=== PATIENT | male | born 1995 | race African-American/Black ===

== ENCOUNTER 2016-07-27 21:46 | Emergency (ER) | payer SELFPAY ==
[~2016-07-27] VITALS: Ht 188 cm; Wt 78.1 kg
[~2016-07-27 21:46] MED LIST: NORC7.5T PO
[2016-07-27 21:51] VITALS: BP 148/82; PULSE 104; RESP 18; TEMP 98.8; O2SAT 100
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
[2016-07-27] MEDS ORDERED: TETANUS/DIPHTHERIA TOXOID ADULT 0.5 ML VIAL IM ONE (22:15)
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
[2016-07-28 00:52] VITALS: BP 134/61
== END 2016-07-28 00:53 | disposition home or self-care (01) ==
LOC: PHEFT 21:46
DX: S06.0X9A Concussion with loss of consciousness of unspecified duration, initial encounter (principal); S00.83XA Contusion of other part of head, initial encounter; Y04.0XXA Assault by unarmed brawl or fight, initial encounter; Z23 Encounter for immunization
CPT/HCPCS: 70450; 70486; 90471; 90714

== ENCOUNTER 2016-08-06 21:16 | Emergency (ER) | payer SELFPAY ==
[~2016-08-06] VITALS: Ht 188 cm; Wt 75.5 kg
[2016-08-06 21:23] VITALS: BP 146/98; PULSE 90; RESP 18; TEMP 98; O2SAT 100
[2016-08-06] MEDS ORDERED: CLIN1CAP5 PO (22:08)
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
[2016-08-06] MEDS ORDERED: CLINDAMYCIN 150 MG CAP PO ONE (22:15)
== END 2016-08-06 22:21 | disposition home or self-care (01) ==
LOC: PHED 21:16
DX: S01.511A Laceration without foreign body of lip, initial encounter (principal); S00.531A Contusion of lip, initial encounter; Z72.0 Tobacco use; Y04.0XXA Assault by unarmed brawl or fight, initial encounter; Y93.89 Activity, other specified; Y99.9 Unspecified external cause status
CPT/HCPCS: 99283

== ENCOUNTER 2016-08-21 23:10 | Inpatient (IN) | payer SELFPAY ==
[~2016-08-21] VITALS: Ht 190.5 cm; Wt 79.5 kg
[~2016-08-21 23:10] MED LIST changes: +CLIN1CAP5 PO; -NORC7.5T PO
[2016-08-21 23:24] VITALS: BP 134/72; PULSE 85; RESP 18; TEMP 97.8; O2SAT 100
[2016-08-21] MEDS ORDERED: TETANUS/DIPHTHERIA TOXOID ADULT 0.5 ML VIAL IM ONE (23:30)
[2016-08-21] MEDS ORDERED: LIDOCAINE 1%/EPINEPHrine 1:100,000 SOLN 50 ML VIAL INFIL ONE (23:45)
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
[2016-08-22] MEDS ORDERED: SODIUM CHLOR 0.9% 1000 ML INJ 1,000 ML IV ONE (01:15)
[2016-08-22] MEDS ORDERED: SODIUM CHLORIDE 0.9% FLUSH 10 ML FLUSH IV FLUSH PRN (01:15)
[2016-08-22] MEDS ORDERED: MORPHINE SULFATE 4 MG/ML INJ IV PUSH PRN ×3 (01:15→09:15)
[2016-08-22] MEDS ORDERED: NALOXONE HCL 0.4 MG/ML AMP IV PRN (01:15)
[2016-08-22] MEDS ORDERED: ceFAZolin 2 GM PREMIX 50 ML IV ONE (01:15)
[2016-08-22] MEDS ORDERED: ONDANSETRON HCL 4 MG/2 ML VIAL IV PUSH ONE (01:15)
[2016-08-22] MEDS ORDERED: MORPHINE SULFATE 4 MG/ML INJ IV PUSH ONE (01:15)
--- NOTE | 2016-08-22 01:32 | PD ---
HPI Chief Complaint: Laceration/Skin Injury Time Seen by Provider: 01:18 Travel History International Travel<30 days: No Contact w/Intl Traveler<30days: No Traveled to known affect area: No History of Present Illness HPI 20-year-old [id number] black male presents to emergency department by EMS for evaluation of right hand laceration. The patient admits to drinking alcohol. He states that he was running and fell into a window. He sustained deep lacerations to his right hand and arm. Patient denies any numbness or tingling. He denies any weakness. He denies any injury to his head, neck or back. The patient is loud, belligerent, and using profanity towards the EMS staff, and the ER staff. PFSH Past Medical History Asthma: Yes (ASTHMA CHILD BUT HAS OUTGROWN) Diminished Hearing: No Musculoskeletal: Yes (L WRIST FX, L ELBOW FX) Immunizations Current: No Tetanus Vaccination: Unknown Past Surgical History Surgical History: No Previous Surgery Social History Alcohol Use: Yes Tobacco Use: Yes Substance Use: Yes (xanax and marijuana) Allergies-Medications (Allergen,Severity, Reaction): Coded Allergies: No Known Allergies (Verified , 08/21/16) Reported Meds & Prescriptions Reported Meds & Active Scripts Active No Active Prescriptions or Reported Medications Review of Systems ROS Limitations: Intoxication Physical Exam Narrative GENERAL: Well-developed, well-nourished in mild distress secondary to pain. Nontoxic appearing. HEAD: Normocephalic, atraumatic. EYES: Pupils equal round and reactive. Extraocular motions intact. No scleral icterus. No injection or drainage. ENT: Nose clear. Throat without erythema, tonsillar hypertrophy or exudate. Uvula midline. Airway patent. NECK: Trachea midline. Supple, nontender, moves head freely. No central bony tenderness or spasm. CARDIOVASCULAR: Regular rate and rhythm without murmurs, gallops, or rubs. RESPIRATORY: Clear to auscultation. Breath sounds equal bilaterally. No wheezes , rales, or rhonchi. GASTROINTESTINAL: Abdomen soft, non-tender, nondistended. No hepato-splenomegaly , or palpable masses. No guarding. EXTREMITIES: No clubbing, cyanosis, or edema. Patient has deep lacerations to the right forearm and right ulnar wrist and palm. The patient is able to extend his fingers, splayed his fingers, close his fingers, extend his wrist, and flex his wrist. The patient states that he has intact sensation which feels normal in all digits. The laceration to the ulnar aspect of the wrist and palm appears deep into the muscle belly of the hypothenar eminence. There is a laceration involving the tendons of the ulnar wrist. These appear to be partial injuries approximately 30-50%. BACK: Nontender without deformity. No flank tenderness. NEUROLOGICAL: Awake, alert and oriented x 3 .Cranial nerves grossly intact. Motor and sensory grossly within normal limits. Normal speech. Data Data Last Documented VS Vital Signs Date Time Temp Pulse Resp B/P Pulse Ox O2 Delivery O2 Flow Rate FiO2 08/21/16 23:24 97.8 85 18 134/72 100 Orders Tetanus/Diphtheria Tox Adult (Tetanus/Di (08/21/16 23:30) Cefazolin Inj (Ancef Inj) (08/21/16 23:30) Forearm (2vws) (08/21/16 23:26) Hand, Limited (2vws) (08/21/16 23:32) Lidocai-Epi 1%-1:100,000 Inj (Xylocaine- (08/21/16 23:45) Admit To Inpatient (08/22/16 ) Vital Signs (Adult) Q4H (08/22/16 01:05) Activity Oob Ad Serena (08/22/16 01:05) Diet Npo (08/22/16 Breakfast) Sodium Chlor 0.9% 1000 Ml Inj (Ns 1000 M (08/22/16 01:05) Sodium Chloride 0.9% Flush (Ns Flush) (08/22/16 01:15) Sodium Chloride 0.9% Flush (Ns Flush) (08/22/16 09:00) Basic Metabolic Panel (Bmp) (08/23/16 06:00) Complete Blood Count With Diff (08/23/16 06:00) Case Management Consult (08/22/16 01:05) Scd Bilateral/Knee High JOHN.BID (08/22/16 01:05) Naloxone Inj (Narcan Inj) (08/22/16 01:15) Inpatient Certification (08/22/16 ) Morphine Inj (Morphine Inj) (08/22/16 01:15) Cefazolin 2 Gm Premix (Ancef 2 Gm Premix (08/22/16 01:15) Ondansetron Inj (Zofran Inj) (08/22/16 01:15) Morphine Inj (Morphine Inj) (08/22/16 01:15) Splint Or Brace Apply/Monitor (08/22/16 01:11) Complete Blood Count With Diff (08/22/16 01:15) Basic Metabolic Panel (Bmp) (08/22/16 01:15) Iv Access Insert/Monitor (08/22/16 01:15) Ns (Bolus) Inj (08/22/16 01:15) MDM Medical Decision Making Medical Screen Exam Complete: Yes Emergency Medical Condition: Yes Medical Record Reviewed: Yes Interpretation(s) Last 24 hours Impressions Hand X-Ray 08/21/162 Signed Impressions: Service Date/Time: Sunday, August 21, 2016 23:40 - CONCLUSION: Large soft tissue defect at the wrist. Adan Faye MD Radius/Ulna X-Ray 08/21/16 [id number] Signed Impressions: Service Date/Time: Sunday, August 21, 2016 23:35 - CONCLUSION: Soft tissue injury without definite retained foreign body. Adan Faye MD Differential Diagnosis MDM: High Differential diagnoses: Fracture, sprain, strain, dislocation, contusion, neurovascular injury Narrative Course The case has been discussed with Dr. Blackburn who has agreed to be a consult on the case. He has requested that his wounds be closed and have the [facility] service admit the patient. He plans on taking the patient to the OR tomorrow. The case has been discussed with who has agreed to admit the patient. IV access is obtained. Patient's given 1 L bolus of saline, 4 mg of Zofran IV, 4 mg of morphine IV, 2 g of Ancef IV, tetanus immunization. His wounds are closed with sutures and girma. He is placed in a splint. The patient is aware that need further exploration of his wounds through the OR tomorrow. Patient's family members are at bedside. Procedures Procedure Narrative LACERATION LOCATION: Right mid forearm LENGTH: 8 cm NUMBER OF STITCHES/GIRMA:21 REPAIR: The area of the laceration was prepped with Betadine and sterilely draped. The laceration was infiltrated with 1% lidocaine with epinephrine. The wound was copiously irrigated and explored without evidence of foreign body , tendon injury or neurovascular injury. There is laceration through the fascia of the muscles of the forearm. This goes down just into the muscle belly of the dorsal forearm. The fascia is closed using 3-0 Vicryl. The subcutaneous tissues are approximated using 3-0 Vicryl. The skin was closed using girma. This was a 3 layer repair. A sterile dressing was applied. The patient was advised to keep the dressing clean and dry. Patient tolerated the procedure well. LACERATION LOCATION: Right volar forearm LENGTH: 3 cm NUMBER OF STITCHES/GIRMA: 6 REPAIR: The area of the laceration was prepped with Betadine and sterilely draped. The laceration was infiltrated with 1% lidocaine with epinephrine. The wound was copiously irrigated and explored without evidence of foreign body , tendon injury or neurovascular injury. The wound was closed using girma. This was a simple single layer repair. A sterile dressing was applied. The patient was advised to keep the dressing clean and dry. Patient tolerated the procedure well. LACERATION LOCATION: Right volar forearm LENGTH: 3 cm NUMBER OF STITCHES/GIRMA: 6 REPAIR: The area of the laceration was prepped with Betadine and sterilely draped. The laceration was infiltrated with 1% lidocaine with epinephrine. The wound was copiously irrigated and explored without evidence of foreign body , tendon injury or neurovascular injury. The wound was closed using girma. This was a simple single layer repair. A sterile dressing was applied. The patient was advised to keep the dressing clean and dry. Patient tolerated the procedure well. LACERATION LOCATION: Right volar forearm LENGTH: 3 cm NUMBER OF STITCHES/GIRMA: 6 REPAIR: The area of the laceration was prepped with Betadine and sterilely draped. The laceration was infiltrated with 1% lidocaine with epinephrine. The wound was copiously irrigated and explored without evidence of foreign body , tendon injury or neurovascular injury. The wound was closed using girma. This was a simple single layer repair. A sterile dressing was applied. The patient was advised to keep the dressing clean and dry. Patient tolerated the procedure well. LACERATION LOCATION: Palm LENGTH: 3 cm NUMBER OF STITCHES/GIRMA: 6 REPAIR: The area of the laceration was prepped with Betadine and sterilely draped. The laceration was infiltrated with 1% lidocaine with epinephrine. The wound was copiously irrigated and explored without evidence of foreign body , tendon injury or neurovascular injury. The wound was closed using girma. This was a simple single layer repair. A sterile dressing was applied. The patient was advised to keep the dressing clean and dry. Patient tolerated the procedure well. LACERATION LOCATION: Ulnar wrist and hypothenar eminence LENGTH: 11 cm NUMBER OF STITCHES/GIRMA: 20 REPAIR: The area of the laceration was prepped with Betadine and sterilely draped. The laceration was infiltrated with 1% lidocaine with epinephrine. The wound was copiously irrigated and explored without evidence of foreign body, or neurovascular injury. There is laceration of the muscle of the hypothenar eminence The patient has lacerations to the ulnar tendons of the wrist. There is approximately 30-40% laceration of the tendon appears intact otherwise. The wound was closed using 5-0 proline. This was a single layer repair. A sterile dressing was applied. The patient was advised to keep the dressing clean and dry. Patient tolerated the procedure well. The patient is placed in a splint in neutral position. Diagnosis Primary Impression: complex laceration right hand and wrist Additional Impression: Laceration of right forearm Qualified Code: S51.811A - Laceration of right forearm, initial encounter Admitting Information Admitting Physician Requests: Admit Scripts No Active Prescriptions or Reported Meds Condition: Yovani Rucker Aug 22, 2016 01:32
[2016-08-22] MEDS: SODIUM CHLOR 0.9% 1000 ML INJ 1,000 ML IV SCH ×2 (01:39→11:05)
[2016-08-22 01:43] LABS: AUTOMATED NEUTROPHIL # 9.3 TH/MM3 (1.8-7.7); BASOPHIL % 0.2 % (0.0-2.0); EOSINOPHIL # 0.1 TH/MM3 (0-0.4); EOSINOPHIL % 0.6 % (0.0-4.0); HEMATOCRIT 38.2 % (39.0-51.0); HEMO FLAGS DIFF FINAL; LYMPH % 14.4 % (9.0-44.0); LYMPHOCYTE # 1.7 TH/MM3 (1.0-4.8); MEAN CELL VOLUME 86.6 FL (80.0-100.0); MEAN CORPUSCULAR HEMOGLOBIN 28.6 PG (27.0-34.0); MEAN CORPUSCULAR HGB CONC 33.1 % (32.0-36.0); MONO % 7.3 % (0.0-8.0); NEUT % 77.5 % (16.0-70.0); PLATELET COUNT 243 TH/MM3 (150-450); RED BLOOD COUNT 4.41 MIL/MM3 (4.50-5.90); RED CELL DISTRIBUTION WIDTH 14.2 % (11.6-17.2); WHITE BLOOD COUNT 12.1 TH/MM3 (4.0-11.0)
[2016-08-22 02:09] LABS: BICARBONATE 28.4 MEQ/L (21.0-32.0); POTASSIUM 3.6 MEQ/L (3.5-5.1)
[2016-08-22 04:37] VITALS: BP 126/80; PULSE 76; RESP 18
[2016-08-22 07:55] VITALS: BP 137/87; PULSE 58; RESP 16; TEMP 97.7; O2SAT 99
[2016-08-22] MEDS ORDERED: SODIUM CHLORIDE 0.9% FLUSH 10 ML FLUSH IV FLUSH SCH (09:00)
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
[2016-08-22] MEDS ORDERED: LIDOCAINE HCL 2% 50 ML VIAL ONE (11:51)
[2016-08-22] MEDS ORDERED: BUPIVACAINE HCL PF 0.5% 30 ML VIAL ONE (11:51)
[2016-08-22] MEDS ORDERED: BACITRACIN TOP OINT 15 GM TUBE ONE (11:51)
[2016-08-22 13:00] VITALS: RESP 16
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
[2016-08-22] MEDS ORDERED: PERC5TAB12 PO (13:39)
[2016-08-22] MEDS ORDERED: CEPH-460 PO (13:39)
--- NOTE | 2016-08-22 13:41 | HHI.DCPOC ---
Discharge Care Plan Diagnosis: (1) Laceration of right forearm (2) Leukocytosis (3) Hyperglycemia Goals to Promote Your Health * To prevent worsening of your condition and complications * To maintain your health at the optimal level Directions to Meet Your Goals Take your medications as prescribed Follow your dietary instruction Follow activity as directed Keep your appointments as scheduled Take your immunizations and boosters as scheduled If your symptoms worsen call your PCP, if no PCP go to Urgent Care Center or Emergency Room Smoking is Dangerous to Your Health. Avoid second hand smoke Call the 24-hour hour crisis hotline for domestic abuse at Faisal Alfaro MD Aug 22, 2016 13:41
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
[2016-08-22 17:21] LABS: HEMOGLOBIN A1b 0.7 %; HEMOGLOBIN F 0.9 %
[2016-08-22 17:22] LABS: HEMOGLOBIN Ao 86.3 %; HEMOGLOBIN LA1C 1.9 %; HEMOGLOBIN P3 3.4 %
== END 2016-08-22 14:50 | disposition home or self-care (01) | DRG 605 ==
LOC: NEPB 23:10 → NEDA 08-22 01:34 → NEDH 08-22 06:23
PROVIDERS: ADMIT Hospitalist; ATTEND Hospitalist
PROC: 0HQDXZZ Repair Right Lower Arm Skin, External Approach (ICD-10-PCS; principal; 2016-08-22)
PROC: 0HQFXZZ Repair Right Hand Skin, External Approach (ICD-10-PCS; 2016-08-22)
PROC: 0HQDXZZ Repair Right Lower Arm Skin, External Approach (ICD-10-PCS; 2016-08-22)
DX: S61.511A Laceration without foreign body of right wrist, initial encounter (principal); S66.821A Laceration of other specified muscles, fascia and tendons at wrist and hand level, right hand, initial encounter; F17.210 Nicotine dependence, cigarettes, uncomplicated; D72.829 Elevated white blood cell count, unspecified; F10.10 Alcohol abuse, uncomplicated; R73.9 Hyperglycemia, unspecified; S51.811A Laceration without foreign body of right forearm, initial encounter; W18.02XA Striking against glass with subsequent fall, initial encounter; Y92.9 Unspecified place or not applicable; Y99.9 Unspecified external cause status; S61.411A Laceration without foreign body of right hand, initial encounter; Y93.01 Activity, walking, marching and hiking
CPT/HCPCS: 12006; 13121; 13122; 73090; 73120; 80048; 83036; 85025; 90714; J0690; J2270; J2405; J7030

== ENCOUNTER 2017-03-09 01:49 | Emergency (ER) | payer SELFPAY ==
[~2017-03-09 01:49] MED LIST changes: +CEPH-460 PO; -CLIN1CAP5 PO; +PERC5TAB12 PO
[2017-03-09 01:50] VITALS: BP 99/58; PULSE 80; RESP 14; TEMP 97.1; O2SAT 98
[2017-03-09 03:34] LABS: BLOOD, URINE NEG (NEG); GLUCOSE,URINE NEG (NEG); KETONE, URINE NEG (NEG); NITRITE,URINE NEG (NEG)
[2017-03-09 03:35] LABS: COMMENT (UR) CATH-CULT NOT IND; CULTURE IF INDICATED CATH CULTURE NOT IND; SQUAMOUS EPITHELIAL CELL URINE 0-5 /hpf (0-5); URINE COLOR YELLOW (YELLW/STRAW)
[2017-03-09 03:46] LABS: ALKALINE PHOSPHATASE 69 U/L (45-117); BLOOD UREA NITROGEN 7 MG/DL (7-18); GLOMERULAR FILTRATION RATE 101 ML/MIN (>89)
[2017-03-09 03:47] LABS: ALCOHOL 227 MG/DL (0-5); ALT (GPT) 14 U/L (12-78); ANION GAP 10 MEQ/L (5-15); AST (GOT) 13 U/L (15-37); BICARBONATE 25.9 MEQ/L (21.0-32.0); CHLORIDE 100 MEQ/L (98-107); CREATINE KINASE 118 U/L (39-308); POTASSIUM 3.2 MEQ/L (3.5-5.1); SODIUM (NA) 136 MEQ/L (136-145); TOTAL BILIRUBIN ADULT 0.3 MG/DL (0.2-1.0)
--- NOTE | 2017-03-09 03:48 | PD ---
HPI Chief Complaint: altered mental status Time Seen by Provider: 03:34 Travel History International Travel<30 days: No Contact w/Intl Traveler<30days: No Traveled to known affect area: No History of Present Illness HPI The patient is a 21-year-old male that was dropped off here at the emergency department from a private vehicle. The patient was comatose and a [place] Coma Scale of 6 and could not give us any history until later. His later history reveals that he was drinking Melchor Baltazar, taking Xanax and later admitted to marijuana. He later admitted to taking some Percocet. PFSH Past Medical History Asthma: Yes (ASTHMA CHILD BUT HAS OUTGROWN) Diminished Hearing: No Musculoskeletal: Yes (L WRIST FX, L ELBOW FX) Immunizations Current: No Social History Alcohol Use: Yes Tobacco Use: Yes Substance Use: Yes (xanax and marijuana) Allergies-Medications (Allergen,Severity, Reaction): Coded Allergies: No Known Allergies (Verified , 08/21/16) Reported Meds & Prescriptions Reported Meds & Active Scripts Active Percocet (Oxycodone-Acetaminophen) 5-325 mg Tab 1 Tab PO Q6H PRN Keflex (Cephalexin) 500 Mg Cap 500 Mg PO Q12H Review of Systems ROS Limitations: Intoxication, Altered Mental Status, Unresponsive, Poor Historian Except as stated in HPI: all other systems reviewed are Neg Physical Exam Narrative GENERAL: The patient was initially comatose and barely really responded by groaning with a sternal rub. His vital signs are normal. He does smell of whiskey. SKIN: Focused skin assessment warm/dry. No needle tracks nor wrist slash taylor are present. HEAD: Atraumatic. Normocephalic. Neither raccoon eyes nor constantino sign is present. EYES: Pupils initially are pinpoint and round. No scleral icterus. No injection or drainage. ENT: No nasal bleeding or discharge. Mucous membranes pink and moist. Tympanic membranes cannot be seen because of wax in both ear canals NECK: Trachea midline. No JVD. No evidence of trauma or deformity on the posterior spinous processes. CARDIOVASCULAR: Regular rate and rhythm. No murmur appreciated. RESPIRATORY: No accessory muscle use. Clear to auscultation. Breath sounds equal bilaterally. GASTROINTESTINAL: Abdomen soft, non-tender, nondistended. Hepatic and splenic margins not palpable. No guarding or rebound is present but the bladder is distended. MUSCULOSKELETAL: No obvious deformities. No clubbing. No cyanosis. No edema. Neurological exam: This was done later when at about 0300. The patient woke up , normal speech with no focal neurologic change. Data Data Orders Orders Alcohol (Ethanol) (03/09/17) Creatine Kinase (Cpk) (03/09/17) Comprehensive Metabolic Panel (03/09/17) Troponin I (03/09/17) Complete Blood Count With Diff (03/09/17) Urinalysis - C+S If Indicated (03/09/17) Drug Screen, Random Urine (03/09/17) Labs Laboratory Tests Test 03/09/17 [facility] Medical Decision Making Medical Screen Exam Complete: Yes Emergency Medical Condition: Yes Medical Record Reviewed: Yes Interpretation(s) The urine toxicology screen was positive for cannabinoids and benzodiazepines. The alcohol level was 227. The CBC is normal. The complete metabolic profile is normal. The urinalysis was normal and culture is not indicated. The EKG shows sinus rhythm with a rate of 81 and J-point elevation, no acute change. The CK and troponin are both normal. Differential Diagnosis Alcohol intoxication, other drug intoxication, suicidal ideation, electrolyte disorder, renal insufficiency, head trauma, acute coronary syndrome Narrative Course There is no evidence of any head trauma. The patient woke up and is now talking normally. Most of his intoxication was likely due to alcohol but Xanax played a part. Marijuana may have played a small part. Diagnosis Primary Impression: Polysubstance abuse Additional Impressions: Alcohol intoxication Drug intoxication Additional Instructions: The patient is going home with his grandmother, the grandmother was told to set up an appointment with [facility] [place] to get him off of alcohol/drugs. Follow-up with [facility]. Disposition: DISCHARGE HOME Condition: Stable Vasyl Caruso MD Mar 09, 2017 03:48
[2017-03-09 03:55] LABS: AUTOMATED NEUTROPHIL # 2.8 TH/MM3 (1.8-7.7); BASOPHIL # 0.1 TH/MM3 (0-0.2); EOSINOPHIL # 0.4 TH/MM3 (0-0.4); EOSINOPHIL % 6.4 % (0.0-4.0); HEMATOCRIT 42.4 % (39.0-51.0); HEMO FLAGS DIFF FINAL; LYMPH % 33.7 % (9.0-44.0); LYMPHOCYTE # 1.9 TH/MM3 (1.0-4.8); MEAN CELL VOLUME 83.1 FL (80.0-100.0); MEAN CORPUSCULAR HGB CONC 33.7 % (32.0-36.0); MONO % 8.1 % (0.0-8.0); NEUT % 50.8 % (16.0-70.0); PLATELET COUNT 227 TH/MM3 (150-450); RED CELL DISTRIBUTION WIDTH 13.3 % (11.6-17.2); WHITE BLOOD COUNT 5.7 TH/MM3 (4.0-11.0)
[2017-03-09 03:59] VITALS: BP 157/79
--- NOTE | 2017-03-09 11:32 | RADRPT ---
EXAM DATE/TIME: 03/09/2017 02:28 [place] COMPARISON: No previous studies available for comparison. INDICATIONS : Syncope. MEDICAL HISTORY : None. SURGICAL HISTORY : None. ENCOUNTER: Initial ACUITY: 1 day PAIN SCORE: 0/10 LOCATION: Bilateral chest FINDINGS: A single view of the chest demonstrates the lungs to be symmetrically aerated without evidence of mas s, infiltrate or effusion. The cardiomediastinal contours are unremarkable. Osseous structures are intact. CONCLUSION: Normal examination. Antoni Ruiz Jr., MD on March 09, 2017 at 2:46 Board Certified Radiologist. This report was verified electronically.
--- NOTE | 2017-03-09 13:00 | EKG ---
Date Performed: 03/09/2017 Time Performed: 02:37:40 PTAGE: 21 years EKG: Sinus rhythm ST ELEVATION, CONSIDER ANTERIOR INJURY ACUTE MN NO PREVIOUS TRACING DOCTOR: Wai Agarwal Interpretating Date/Time 03/09/2017 12:57:23
== END 2017-03-09 04:07 | disposition home or self-care (01) ==
LOC: PHEFT 01:49
DX: F19.10 Other psychoactive substance abuse, uncomplicated (principal); F10.129 Alcohol abuse with intoxication, unspecified; T42.4X5A Adverse effect of benzodiazepines, initial encounter; R94.31 Abnormal electrocardiogram [ECG] [EKG]; Z72.0 Tobacco use; Z87.09 Personal history of other diseases of the respiratory system; Z87.39 Personal history of other diseases of the musculoskeletal system and connective tissue
CPT/HCPCS: 71010; 80053; 80307; 81001; 82550; 84484; 85025; 93005; 99284